=== PATIENT | male | born 1985 | race Caucasian/White ===

== ENCOUNTER 2018-11-22 16:08 | Emergency (ER) | payer OTHER, MEDICAID ==
[~2018-11-22] VITALS: Ht 177.8 cm; Wt 136.4 kg
[2018-11-22 17:16] LABS: BASO % 0.3 % (0.0-1.0); EOS # 0.2 10^3/uL (0.0-0.50); EOS % 2.4 % (0.0-3.0); HEMATOCRIT 40.3 % (42.0-52.0); HEMOGLOBIN 13.8 g/dl (13.5-17.5); LYMPH # 2.1 10^3/uL (1.5-4.5); LYMPH % 23.4 % (24.0-44.0); MEAN CORPUSCULAR HEMOGLOBIN 30.1 pg (27.0-33.0); MEAN CORPUSCULAR HGB CONC 34.2 g/dl (32.0-36.5); MEAN CORPUSCULAR VOLUME 87.8 fl (80.0-96.0); MONO # 0.6 10^3/uL (0.0-0.8); MONO % 6.6 % (0.0-5.0); NEUTROPHILS # 6.2 10^3/uL (1.8-7.7); NEUTROPHILS % 67.1 % (36.0-66.0); PLATELET COUNT, AUTOMATED 349 10^3/uL (150-450); RED BLOOD COUNT 4.59 10^6/uL (4.30-6.10); WHITE BLOOD COUNT 9.2 10^3/uL (4.0-10.0)
[2018-11-22 17:43] LABS: ALBUMIN 3.4 GM/DL (3.2-5.2); ALT/SGPT 55 U/L (12-78); BILIRUBIN,DIRECT < 0.1 MG/DL (0.0-0.2); BILIRUBIN,TOTAL 0.3 MG/DL (0.2-1.0); BLOOD UREA NITROGEN 9 MG/DL (7-18); CALCIUM LEVEL 8.5 MG/DL (8.5-10.1); CARBON DIOXIDE LEVEL 33 MEQ/L (21-32); CHLORIDE LEVEL 103 MEQ/L (98-107); CPK CREATINE PHOSPHOKINASE 246 U/L (39-308); CREATININE FOR GFR 0.93 MG/DL (0.70-1.30); GLOMERULAR FILTRATION RATE > 60.0 (>60); GLUCOSE, FASTING 121 MG/DL (70-100); LIPASE 255 U/L (73-393); MB/CK RELATIVE INDEX 0.45 (< OR =4); POTASSIUM SERUM 3.4 MEQ/L (3.5-5.1); SODIUM LEVEL 142 MEQ/L (136-145); TOTAL PROTEIN 7.8 GM/DL (6.4-8.2); TROPONIN I < 0.02 NG/ML (< 0.10)
[2018-11-22] MEDS ORDERED: MORPHINE 4 MG/ML 1ML VIAL/SYRINGE (J2270) IV ONE (18:15)
[2018-11-22] MEDS ORDERED: POTASSIUM CHLORIDE 10 MEQ SR TABLET PO ONE (18:15)
[2018-11-22] MEDS ORDERED: ONDANSETRON 4MG/2ML VIAL (J2405) IV ONE (18:15)
--- NOTE | 2018-11-22 18:20 | REP ---
Portable chest x-ray: Single view: History: Chest pain. Findings: The lungs are symmetrically aerated and clear. EKG monitoring electrodes overlie the chest. Heart is not enlarged. Pleural angles are sharp. Right hemidiaphragm is slightly elevated. Pulmonary vasculature is not increased. No significant bony abnormality is seen. Impression: Slightly elevated right hemidiaphragm. Otherwise no acute disease. Electronically Signed by Geovani Carlson MD 11/22/2018 06:25 P
[2018-11-22] MEDS ORDERED: CHLO125TA PO (18:34)
[2018-11-22] MEDS ORDERED: POTA20TA4 PO (18:34)
[2018-11-22] MEDS ORDERED: VALS1TAB47 PO (18:35)
[2018-11-22] MEDS ORDERED: VALSARTAN 80 MG TAB (DIOVAN) PO ONE (19:00)
[2018-11-22] MEDS ORDERED: CHLORTHALIDONE 12.5MG PER 1/2 TABLET PO ONE (19:00)
[2018-11-22 19:01] VITALS: BP 176/74
--- NOTE | 2018-11-22 19:05 | REP ---
Left upper extremity duplex venous ultrasound: History: The left arm pain. Rule out DVT. Findings: The left internal jugular, axillary, brachial, basilic, and cephalic veins are anechoic and compressible in the left upper extremity. Color flow imaging is homogeneous. Spectral Doppler interrogation is unremarkable. There is no evidence of left upper extremity venous thrombosis. Impression: Negative left upper extremity duplex venous ultrasound. No evidence of venous thrombosis. Electronically Signed by Geovani Carlson MD 11/22/2018 06:58 P
[2018-11-22 19:12] VITALS: BP 176/74
--- NOTE | 2018-11-22 20:02 | ECGEPIP ---
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
== END 2018-11-22 19:34 | disposition home or self-care (01) ==
LOC: M ED 16:08
DX: I10 Essential (primary) hypertension (principal); M79.602 Pain in left arm; F32.9 Major depressive disorder, single episode, unspecified; Z79.899 Other long term (current) drug therapy; Z79.1 Long term (current) use of non-steroidal anti-inflammatories (NSAID); Z91.5 Personal history of self-harm
CPT/HCPCS: 71045; 80048; 80076; 82550; 82553; 83690; 84439; 84443; 85025; 93005; 93041; 93971; 94760; 96374; 96375; 99284; J2270; J2405

== ENCOUNTER → 2018-12-01 | Outpatient (REF) | payer OTHER ==
[~2018-12-01] MED LIST: CHLO125TA PO; POTA20TA4 PO; VALS1TAB47 PO
[2018-12-01 18:02] LABS: BASO % 0.2 % (0.0-1.0); EOS # 0.2 10^3/uL (0.0-0.50); EOS % 2.3 % (0.0-3.0); HEMATOCRIT 44.3 % (42.0-52.0); LYMPH # 1.9 10^3/uL (1.5-4.5); LYMPH % 22.8 % (24.0-44.0); MEAN CORPUSCULAR HEMOGLOBIN 30.2 pg (27.0-33.0); MEAN CORPUSCULAR HGB CONC 33.9 g/dl (32.0-36.5); MEAN CORPUSCULAR VOLUME 89.3 fl (80.0-96.0); MONO # 0.4 10^3/uL (0.0-0.8); MONO % 5.2 % (0.0-5.0); NEUTROPHILS # 5.6 10^3/uL (1.8-7.7); NEUTROPHILS % 69.3 % (36.0-66.0); PLATELET COUNT, AUTOMATED 373 10^3/uL (150-450); RED BLOOD COUNT 4.96 10^6/uL (4.30-6.10); WHITE BLOOD COUNT 8.1 10^3/uL (4.0-10.0)
[2018-12-01 18:20] LABS: ALBUMIN 3.8 GM/DL (3.2-5.2); ALT/SGPT 59 U/L (12-78); BILIRUBIN,TOTAL 0.7 MG/DL (0.2-1.0); BLOOD UREA NITROGEN 10 MG/DL (7-18); CALCIUM LEVEL 8.6 MG/DL (8.5-10.1); CARBON DIOXIDE LEVEL 33 MEQ/L (21-32); CHLORIDE LEVEL 101 MEQ/L (98-107); CHOLESTEROL LEVEL 194 MG/DL (<200); CHOLESTEROL RISK RATIO 4.619 (<5); CPK CREATINE PHOSPHOKINASE 274 U/L (39-308); CREATININE FOR GFR 1.03 MG/DL (0.70-1.30); GLOMERULAR FILTRATION RATE > 60.0 (>60); GLUCOSE, FASTING 133 MG/DL (70-100); HDL CHOLESTEROL 42 MG/DL (>40); LDL CHOLESTEROL 132 MG/DL (<100); MAGNESIUM LEVEL 2.3 MG/DL (1.8-2.4); MB/CK RELATIVE INDEX 0.44 (< OR =4); NON-HDL-C 152 MG/DL; NT-PRO BNP 20 PG/ML (<125); POTASSIUM SERUM 3.5 MEQ/L (3.5-5.1); SODIUM LEVEL 142 MEQ/L (136-145); THYROID STIMULATING HORMONE 0.853 uIU/ML (0.358-3.740); TOTAL PROTEIN 8.2 GM/DL (6.4-8.2); TRIGLYCERIDES LEVEL 102 MG/DL (<150); TROPONIN I < 0.02 NG/ML (< 0.10)
[2018-12-01 19:47] LABS: HEMOGLOBIN A1c 6.3 %
== END ==
LOC: M SFHCPLAZ 14:52
PROVIDERS: ATTEND Nurse Practitioner Family
DX: I10 Essential (primary) hypertension (principal); Z13.228 Encounter for screening for other metabolic disorders

== ENCOUNTER → 2018-12-07 | Outpatient (CLI) | payer OTHER ==
--- NOTE | 2018-12-08 02:40 | REP ---
Clinical: Neck pain radiating to left shoulder . Technique: AP, lateral, flexion/extension, bilateral oblique, and open-mouth views. Findings: Alignment and lordosis is maintained. There is no evidence for acute fracture / compression injury or subluxation. No significant degenerative changes are appreciated. Oblique views demonstrate patent neural foramen. Open mouth view demonstrates normal C1-C2 articulation and odontoid process. Impression: Normal age-appropriate cervical spine series. Electronically Signed by Shan Mendoza MD 12/08/2018 02:31 A
--- NOTE | 2018-12-08 03:01 | REP ---
Clinical: Left shoulder pain . Technique: Internal rotation, external rotation, and Y view. Findings: No acute fracture or dislocation. The acromioclavicular and glenohumeral joints are intact. No periarticular calcifications or degenerative changes are appreciated. Sub acromial space is normal. Surrounding soft tissues are unremarkable. Impression: Normal left shoulder radiographs. Electronically Signed by Shan Mendoza MD 12/08/2018 02:53 A
== END ==
LOC: M RAD 14:54
PROVIDERS: ATTEND Nurse Practitioner Family
DX: M54.2 Cervicalgia (principal); M25.512 Pain in left shoulder

== ENCOUNTER 2019-03-05 18:54 | Emergency (ER) | payer OTHER ==
[~2019-03-05] VITALS: Ht 180.3 cm; Wt 172.7 kg
[~2019-03-05 18:54] MED LIST changes: -VALS1TAB47 PO; +VALS1TAB67 PO
[2019-03-05] MEDS ORDERED: VALSARTAN 80 MG TAB (DIOVAN) PO ONE (19:30)
[2019-03-05] MEDS ORDERED: ASPIRIN 81 MG CHEW TABLET PO ONE (19:30)
[2019-03-05] MEDS ORDERED: amLODIPine 5 MG TAB PO ONE (19:30)
[2019-03-05] MEDS ORDERED: CHLORTHALIDONE 25 MG TAB PO ONE (19:30)
[2019-03-05 19:42] LABS: BASO % 0.4 % (0.0-1.0); EOS # 0.2 10^3/uL (0.0-0.50); EOS % 1.5 % (0.0-3.0); HEMATOCRIT 40.9 % (42.0-52.0); HEMOGLOBIN 14.2 g/dl (13.5-17.5); LYMPH # 1.9 10^3/uL (1.5-4.5); LYMPH % 18.1 % (24.0-44.0); MEAN CORPUSCULAR HGB CONC 34.7 g/dl (32.0-36.5); MEAN CORPUSCULAR VOLUME 89.3 fl (80.0-96.0); MONO # 0.7 10^3/uL (0.0-0.8); MONO % 6.5 % (0.0-5.0); NEUTROPHILS # 7.7 10^3/uL (1.8-7.7); NEUTROPHILS % 72.8 % (36.0-66.0); PLATELET COUNT, AUTOMATED 340 10^3/uL (150-450); RED BLOOD COUNT 4.58 10^6/uL (4.30-6.10); WHITE BLOOD COUNT 10.5 10^3/uL (4.0-10.0)
[2019-03-05] MEDS ORDERED: ASPI81TA26 PO (19:46)
[2019-03-05] MEDS ORDERED: NORV5TAB PO (19:46)
[2019-03-05] MEDS ORDERED: CHLO125TA PO (19:46)
[2019-03-05] MEDS ORDERED: METF750T PO (19:46)
[2019-03-05] MEDS ORDERED: VALS1TAB68 PO (19:46)
[2019-03-05] MEDS ORDERED: OMEP40CA2 PO (19:46)
[2019-03-05 19:54] VITALS: BP 183/103
[2019-03-05 19:56] LABS: INR 1.1; PROTHROMBIN TIME 14.3 SECONDS (12.1-14.4)
[2019-03-05 20:22] LABS: ALBUMIN 3.7 GM/DL (3.2-5.2); ALT/SGPT 56 U/L (12-78); BILIRUBIN,DIRECT 0.2 MG/DL (0.0-0.2); BILIRUBIN,TOTAL 0.7 MG/DL (0.2-1.0); BLOOD UREA NITROGEN 11 MG/DL (7-18); CALCIUM LEVEL 8.8 MG/DL (8.5-10.1); CARBON DIOXIDE LEVEL 32 MEQ/L (21-32); CHLORIDE LEVEL 103 MEQ/L (98-107); CK-MB VALUE MASS < 1.0 NG/ML (<3.6); CPK CREATINE PHOSPHOKINASE 317 U/L (39-308); FREE T4 0.89 NG/DL (0.76-1.46); GLOMERULAR FILTRATION RATE > 60.0 (>60); GLUCOSE, FASTING 118 MG/DL (70-100); LIPASE 258 U/L (73-393); MB/CK RELATIVE INDEX 0.32 (< OR =4); POTASSIUM SERUM 3.3 MEQ/L (3.5-5.1); SODIUM LEVEL 141 MEQ/L (136-145); TOTAL PROTEIN 8.3 GM/DL (6.4-8.2); TROPONIN I < 0.02 NG/ML (< 0.10)
[2019-03-05] MEDS ORDERED: POTASSIUM CHLORIDE 10 MEQ SR TABLET PO ONE (20:30)
[2019-03-05] MEDS ORDERED: ISOVUE-370 76% 100ML VIAL (Q9967) As Ordered ONE (20:35)
[2019-03-05] MEDS ORDERED: POTA20TA6 PO (20:55)
[2019-03-05] MEDS ORDERED: ONDANSETRON 4MG/2ML VIAL (J2405) IV ONE (21:00)
[2019-03-05] MEDS ORDERED: MORPHINE 4 MG/ML 1ML VIAL/SYRINGE (J2270) IV ONE (21:15)
--- NOTE | 2019-03-05 22:00 | REPVR ---
EXAM: CT Angiography Chest With Contrast EXAM DATE/TIME: 03/05/2019 8:36 PM CLINICAL HISTORY: 33 years old, male; Chest pain; Additional info: Chest pain, SOB TECHNIQUE: Imaging protocol: Axial computed tomographic angiography images of the chest with intravenous contrast using CT angiography protocol. Coronal and sagittal reformatted images were created and reviewed. 3D rendering: MIP reconstructed images were created and reviewed. Radiation optimization: All CT scans at this facility use at least one of these dose optimization techniques: automated exposure control; mA and/or kV adjustment per patient size (includes targeted exams where dose is matched to clinical indication); or iterative reconstruction. Contrast material: ISOVUE 370; Contrast volume: 75 ml; Contrast route: IV; COMPARISON: CR PORTABLE CHEST X-RAY 11/22/2018 5:25 PM FINDINGS: Pulmonary arteries: Contrast opacification satisfactory. No intraluminal filling defect. Aorta: Unremarkable. No aneurysm or dissection. Lungs: Unremarkable. No consolidation. No mass. Pleural space: Unremarkable. No pneumothorax. No pleural effusion. Heart: Unremarkable. No cardiomegaly. No pericardial effusion. Mediastinum: Small hiatal hernia with contrast in the distal esophagus, suggesting reflux. Diaphragm: Elevated right hemidiaphragm. Liver: Mild hepatomegaly. Diffuse hepatic steatosis. Spleen: Mild splenomegaly. Lymph nodes: No pathologically enlarged lymph nodes. Bones/joints: No acute osseous abnormality. Soft tissues: Unremarkable. IMPRESSION: 1. No CT evidence of pulmonary embolism. 2. Additional findings, as above. Electronically signed by: Bertram Daigle On 03/05/2019 21:59:17 PM
[2019-03-05 22:15] VITALS: BP 180/79
--- NOTE | 2019-03-06 18:51 | ECGEPIP ---
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
== END 2019-03-05 22:28 | disposition home or self-care (01) ==
LOC: M ED 18:54
DX: I10 Essential (primary) hypertension (principal); E66.9 Obesity, unspecified; Z87.891 Personal history of nicotine dependence; Z79.899 Other long term (current) drug therapy; Z79.84 Long term (current) use of oral hypoglycemic drugs; Z79.82 Long term (current) use of aspirin
CPT/HCPCS: 36415; 71275; 80048; 80076; 82550; 82553; 83690; 84439; 84443; 85025; 85610; 85730; 93005; 93041; 94760; 96374; 96375; 99285; J2270; J2405; Q9967

== ENCOUNTER 2019-03-09 01:30 | Emergency (ER) | payer OTHER ==
[~2019-03-09] VITALS: Ht 177.8 cm; Wt 172.7 kg
[~2019-03-09 01:30] MED LIST changes: +ASPI81TA26 PO; +METF750T PO; +NORV5TAB PO; +OMEP40CA2 PO; +POTA20TA6 PO; +VALS1TAB68 PO
[2019-03-09 01:31] VITALS: BP 144/79
== END 2019-03-09 01:59 | disposition left against medical advice (07) ==
LOC: M ED 01:30
DX: Z53.29 Procedure and treatment not carried out because of patient's decision for other reasons (principal)